=== PATIENT | male | born 1975 | race African-American/Black ===

== ENCOUNTER 2022-09-25 14:31 | Inpatient (IN) | payer OTHER ==
[2022-09-25 15:40] VITALS: BMI 28.8
[2022-09-25] MEDS ORDERED: POLYETHYLENE GLYCOL (HEALTHYLAX) 3350 17 GM PACKET PO PRN (19:31)
[2022-09-25] MEDS ORDERED: P-EPHED 60MG/TRIPROLIDI 2.5MG TABLET PO PRN (19:31)
[2022-09-25] MEDS ORDERED: DICYCLOMINE HCL 10 MG CAPSULE PO PRN (19:31)
[2022-09-25] MEDS ORDERED: MAGNESIUM HYDROX 2400MG/30ML ORAL SUSPENSION 30 ML CUP PO PRN (19:31)
[2022-09-25] MEDS ORDERED: NALOXONE HCL (KLOXXADO) 8 MG SPRAY NS PRN (19:31)
[2022-09-25] MEDS ORDERED: BENZONATATE 200 MG CAPSULE PO PRN (19:31)
[2022-09-25] MEDS ORDERED: NICOTINE POLACRILEX 2 MG GUM BUC PRN (19:31)
[2022-09-25] MEDS ORDERED: MAG HYDROX/AL HYDROX/SIMETH 30 ML UNIT-DOSE CUP PO PRN (19:31)
[2022-09-25] MEDS ORDERED: hydrOXYzine PAMOATE 25 MG CAPSULE (FP) PO PRN (19:31)
[2022-09-25] MEDS ORDERED: ACETAMINOPHEN 325 MG TABLET (FP) PO PRN (19:31)
[2022-09-25] MEDS ORDERED: LOPERAMIDE HCL 2 MG CAPSULE PO PRN (19:31)
[2022-09-25] MEDS ORDERED: BENZOCAINE/MENTHOL (CHLORASEPTIC ) LOZENGE MM PRN (19:31)
[2022-09-25] MEDS ORDERED: IBUPROFEN 600 MG TABLET (FP) PO PRN (19:31)
[2022-09-25] MEDS ORDERED: guaiFENesin 600 MG TABLET.ER (FP) PO PRN (19:31)
[2022-09-25] MEDS ORDERED: METHOCARBAMOL 500 MG TABLET PO PRN (19:31)
[2022-09-25] MEDS ORDERED: BISMUTH SUBSALICYLATE 524 MG/30 ML PO PRN (19:31)
[2022-09-25] MEDS ORDERED: NALOXONE HCL 0.4 MG/ML VIAL IM PRN (19:31)
[2022-09-25] MEDS ORDERED: IBUPROFEN 400 MG TABLET (FP) PO PRN (19:31)
[2022-09-25] MEDS ORDERED: ONDANSETRON *ODT* 4 MG TABLET SL PRN (19:31)
[2022-09-25] MEDS: MELATONIN 5 MG TABLETS PO SCH (21:24)
[2022-09-25] MEDS: THIAMINE HCL 100 MG TABLET (FP) PO SCH (21:24)
[2022-09-26] MEDS ORDERED: chlordiazePOXIDE HCL 25 MG CAPSULE PO PRN (09:24)
[2022-09-26] MEDS ORDERED: NICOTINE 7 MG/24 HOURS TOPICAL PATCH TD SCH (10:00)
[2022-09-26] MEDS: PRENATAL VITAMINS W/ FOLIC ACID TABLET (FP) PO SCH (10:28)
[2022-09-26] MEDS: chlordiazePOXIDE HCL 25 MG CAPSULE PO SCH ×3 (10:28→22:23)
[2022-09-26 11:33] LABS: HEMATOCRIT 39.7 % (35.4-49); HEMOGLOBIN 13.8 GM/dL (11.7-16.9); MCH 32.1 pg (25.7-33.7); MCHC 34.6 g/dl (32.0-35.9); MEAN CELL VOLUME 92.6 fl (80-96); MEAN PLT VOLUME 7.2 fl (7.5-11.1); PLATELET COUNT 324 10^3/uL (134-434); RBC 4.29 M/mm3 (4.00-5.60); RDW 13.4 % (11.9-15.9); WHITE BLOOD COUNT 4.9 K/mm3 (4.0-10.0)
[2022-09-26 12:10] LABS: POTASSIUM 3.9 mmol/L (3.5-5.1)
[2022-09-26 12:23] LABS: CALCIUM 9.1 mg/dL (8.5-10.1)
[2022-09-26 12:24] LABS: ALBUMIN 3.4 g/dl (3.4-5.0); BLOOD UREA NITROGEN 15.6 mg/dL (7-18)
[2022-09-26 12:25] LABS: CREATININE 0.9 mg/dL (0.55-1.3)
[2022-09-26 12:26] LABS: BILIRUBIN,TOTAL 0.4 mg/dL (0.2-1)
[2022-09-26] MEDS ORDERED: NICOTINE 21 MG/24 HOURS TOPICAL PATCH TD SCH (14:45)
[2022-09-26] MEDS ORDERED: NICOTINE POLACRILEX 2 MG GUM BUC PRN (20:09)
[2022-09-26] MEDS ORDERED: OLANZapine 10 MG TABLET PO SCH (22:00)
[2022-09-26] MEDS: THIAMINE HCL 100 MG TABLET (FP) PO SCH (22:22)
[2022-09-26] MEDS: MELATONIN 5 MG TABLETS PO SCH (22:22)
[2022-09-26] MEDS ORDERED: MELATONIN 5 MG TABLETS PO ONE (22:42)
[2022-09-27] MEDS: chlordiazePOXIDE HCL 25 MG CAPSULE PO SCH ×2 (06:14→10:22)
[2022-09-27 08:44] VITALS: RESP 18
[2022-09-27] MEDS ORDERED: NICOTINE 21 MG/24 HOURS TOPICAL PATCH TD SCH (10:00)
[2022-09-27] MEDS ORDERED: FLUoxetine HCL 20 MG CAPSULE PO SCH (10:00)
[2022-09-27] MEDS: PRENATAL VITAMINS W/ FOLIC ACID TABLET (FP) PO SCH (10:22)
[2022-09-27 12:52] VITALS: BP 138/81; PULSE 78; TEMP 97.4
[2022-09-27] MEDS ORDERED: MELATONIN 5 MG TABLETS PO SCH (22:00)
[2022-09-28] MEDS ORDERED: chlordiazePOXIDE HCL 25 MG CAPSULE PO SCH (05:00)
[2022-09-29] MEDS ORDERED: chlordiazePOXIDE HCL 10 MG CAPSULE PO PRN
[2022-09-29] MEDS ORDERED: chlordiazePOXIDE HCL 10 MG CAPSULE PO SCH (05:00)
[2022-09-30] MEDS ORDERED: chlordiazePOXIDE HCL 10 MG CAPSULE PO SCH (05:00)
[2022-10-01] MEDS ORDERED: chlordiazePOXIDE HCL 10 MG CAPSULE PO ONE (05:00)
== END 2022-09-27 02:56 | disposition left against medical advice (07) | DRG 770 ==
LOC: YASAS 14:31 → Y3N 20:37
PROVIDERS: ADMIT Allergy & Immunology; ATTEND Surgery
PROC: HZ2ZZZZ Detoxification Services for Substance Abuse Treatment (ICD-10-PCS; principal; 2022-09-25)
DX: F10.230 Alcohol dependence with withdrawal, uncomplicated (principal); F14.20 Cocaine dependence, uncomplicated; F17.210 Nicotine dependence, cigarettes, uncomplicated; F25.9 Schizoaffective disorder, unspecified; Z56.0 Unemployment, unspecified; Z59.00 Homelessness unspecified; Z88.8 Allergy status to other drugs, medicaments and biological substances
CPT/HCPCS: 36415; 80053; 85027; 86780; C9803-CS; U0003; U0005